=== PATIENT | male | born 1945 | race Caucasian/White ===

== ENCOUNTER → 2016-12-21 | Day surgery (SDC) | payer MEDICARE ==
--- NOTE | 2016-12-20 09:50 | MH ---
cc: MONTRELL TYSON M.D. DATE OF ADMISSION 12/21/2016 INDICATIONS This is a 71-year-old male with epistaxis. Don has had a lesion small meningioma that has had some significant bleeding from the right septum in the upper area. He was treated the office with topical silver nitrate cautery. This did not respond. He is now brought to the operating room for endoscopic control of his epistaxis under anesthesia with cautery. PAST MEDICAL HISTORY MEDICATION ALLERGIES TEGRETOL CURRENT MEDICATIONS 1. AREDS 2. Bactroban intranasal PHYSICAL EXAM This is a well-developed, well-nourished male in no apparent distress. HEAD, EYES, EARS, NOSE, AND THROAT: Normocephalic, atraumatic. Extraocular motions intact. External ear canals clear. Lips, oral mucosa and oropharynx show no lesion. Nasal exam shows hemangioma right nasal septum. CHEST: Clear to outpatient. HEART: Regular rate. ABDOMEN: Soft. EXTREMITIES: No lesion. NEUROLOGIC: Exam is nonfocal. ASSESSMENT This is a 71-year-old male with right epistaxis. He is to undergo right endoscopic control of epistaxis. The risks and benefits discussed with the patient. The risks include but not limited to those of anesthesia, bleeding, unfavorable scarring, hematoma, abscess, infection, septal perforation and further bleeding, anosmia, nasal obstruction. The patient states he understands and accepts the risks of the procedure. DATE OF 1945 MD DONTRELL Polanco/MIKEL /8:29 AM /9:46 AM
[~2016-12-21] VITALS: Ht 180.3 cm; Wt 91.8 kg
[~2016-12-21] MED LIST: DEXAMETHASONE SOD PHOS 4 MG/ML VIAL ONE; DO NOT ADM ANY ANTICOAGULANT DRUGS XX PRN; EPINEPHrine HCL (1:1000) 30 MG/30 ML VIAL OTHER ONE; EYECAP PO; FAMOTIDINE 20 MG/2 ML VIAL ONE; IBUPROFEN 400 MG TAB PO PRN; INSULIN HUMAN REGULAR 1,000 UNITS/10 ML VIAL SQ PRN; LACTATED RINGER'S 1000 ML IV SCH; METOPROLOL TARTRATE 25 MG TAB PO PRN; MIDAZOLAM HCL 2 MG/2 ML VIAL ONE; MORPHINE SULFATE 4 MG/ML INJ IV PRN; ONDANSETRON HCL 4 MG/2 ML VIAL IV PUSH ONE; ONDANSETRON HCL 4 MG/2 ML VIAL IV PUSH PRN; PROPOFOL 200 MG/20 ML AMP IV ONE; SODIUM CHLORID 0.9% 500 ML IV SCH
[2016-12-21 07:50] VITALS: BP 153/79; PULSE 68; RESP 16; TEMP 97; O2SAT 97
[2016-12-21 08:40] LABS: AUTOMATED NEUTROPHIL # 3.4 TH/MM3 (1.8-7.7); BASOPHIL % 0.6 % (0.0-2.0); EOSINOPHIL # 0.2 TH/MM3 (0-0.4); HEMATOCRIT 39.4 % (39.0-51.0); HEMO FLAGS DIFF FINAL; LYMPH % 21.6 % (9.0-44.0); LYMPHOCYTE # 1.1 TH/MM3 (1.0-4.8); MEAN CELL VOLUME 80.1 FL (80.0-100.0); MEAN CORPUSCULAR HEMOGLOBIN 27.3 PG (27.0-34.0); MEAN CORPUSCULAR HGB CONC 34.1 % (32.0-36.0); MONO % 10.1 % (0.0-8.0); NEUT % 63.7 % (16.0-70.0); PLATELET COUNT 136 TH/MM3 (150-450); RED BLOOD COUNT 4.91 MIL/MM3 (4.50-5.90); RED CELL DISTRIBUTION WIDTH 15.2 % (11.6-17.2); WHITE BLOOD COUNT 5.3 TH/MM3 (4.0-11.0)
--- NOTE | 2016-12-21 09:29 | MP ---
cc: MONTRELL TYSON M.D. DATE OF SURGERY 12/21/2016 DATE OF 1945 INDICATION This is a 71-year-old male with right epistaxis. 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 PREOPERATIVE DIAGNOSIS Right epistaxis POSTOPERATIVE DIAGNOSIS Right epistaxis PROCEDURE Right endoscopic control of epistaxis ANESTHESIA General anesthesia SUMMARY The patient brought to the operating room and placed in the supine position, successfully placed under general anesthesia and prepared in the usual fashion for this procedure. The nose was first decongested. The left side was examined briefly. There was no evidence of a lesion and no evidence of bleeding or prominent vessels. On the right side, it showed prominent vessel, a Kiesselbach's plexus anteriorly and the hemangioma seen in the office in the upper mid septum. Both areas were controlled with suction cautery with only minimal bleeding and no significant bleeding. There was no lateral lesion. No polypoid disease. He tolerated the procedure well. He was suctioned and cleared. He was awakened and taken to recovery in stable condition. MD DONTRELL Polanco/MIKEL /9:08 AM /9:21 AM
[2016-12-21 11:00] VITALS: BP 141/71; PULSE 74; RESP 16; TEMP 97.2; O2SAT 98
--- NOTE | 2016-12-21 15:46 | EKG ---
Date Performed: 12/21/2016 Time Performed: 08:04:29 PTAGE: 71 years EKG: Sinus rhythm SEPTAL MYOCARDIAL INFARCTION , OF INDETERMINATE AGE ABNORMAL ECG NO PREVIOUS TRACING DOCTOR: Judd Sharma Interpretating Date/Time 12/21/2016 15:41:47
== END | disposition home or self-care (01) ==
LOC: HSDC 07:15
PROVIDERS: ATTEND Specialist
DX: R04.0 Epistaxis (principal); D32.9 Benign neoplasm of meninges, unspecified; R94.31 Abnormal electrocardiogram [ECG] [EKG]
CPT/HCPCS: 00160; 31238; 85025; 93005; J0171; J1100; J2250; J2405; J3010; J7120